=== PATIENT | male | born 1975 | race African-American/Black ===

== ENCOUNTER 2023-07-28 02:08 | Emergency (ER) | payer MEDICAID ==
[~2023-07-28] VITALS: Ht 193 cm; Wt 100.0 kg
[2023-07-28 03:16] VITALS: BP 142/71; PULSE 101; RESP 16; TEMP 98.4
== END 2023-07-28 03:49 | disposition home or self-care (01) ==
LOC: EMS 02:10 → EDBD 02:10 → EMS 03:49
DX: F41.9 Anxiety disorder, unspecified (principal); R44.0 Auditory hallucinations; R44.1 Visual hallucinations; Z53.21 Procedure and treatment not carried out due to patient leaving prior to being seen by health care provider
CPT/HCPCS: 99281; Z7502